=== PATIENT | male | born 1975 ===

== ENCOUNTER 2021-06-24 19:39 | Inpatient (IN) | payer BC ==
[2021-06-24] MEDS ORDERED: Sodium Chloride 0.9% 1,000 ML IV ONE (20:09)
[2021-06-24] MEDS ORDERED: Codeine/Promethazine 10-6.25 MG/5 ML Syrup 5 ML UD Syringe PO STA (20:09)
[2021-06-24 20:38] LABS: BLOOD UREA NITROGEN,BUN 8 mg/dL (7.0-18.0); CHLORIDE,CL 99 mmol/L (98-107); GLUCOSE RANDOM 131 mg/dL (74-106); POTASSIUM,K 3.9 mmol/L (3.5-5.1); SODIUM,NA 138 mmol/L (136-148)
[2021-06-24] MEDS ORDERED: Dexamethasone 10 MG/ML SDV IVPUSH ONE (21:23)
[2021-06-24] MEDS ORDERED: REMDESIVIR 200 MG in Sodium Chloride 0.9% 250 ML IV ONE (21:23)
--- NOTE | 2021-06-24 21:24 | EDM.PDOC ---
ED HPI GENERAL MEDICAL PROBLEM - General Chief Complaint: Respiratory Problem Stated Complaint: CHRONIC COUGH Time Seen by Provider: 06/24/21 20:00 Source of Information: Reports: Patient History Limitations: Reports: No Limitations - History of Present Illness INITIAL COMMENTS - FREE TEXT/NARRATIVE: HISTORY AND PHYSICAL: History of present illness: Patient is a 46-year-old male who presents to the emergency room with complaints of shortness of breath, chest pain and cough. He was diagnosed with COVID-19 on 06/17/2021 and states his symptoms are progressively getting worse. He reports that he has coughing episodes that make him so short of breath that he feels like he is going to "pass out" and have chest pain. Upon walking into the emergency room he is very dyspneic, oxygen saturation is 87% on room air. Patient denies any fever, chills, change in vision, syncope or near syncope. Denies any neck/back pain, hemoptysis, abdominal pain, nausea, vomiting, diarrhea, constipation or dysuria. Has not noted any blood in urine or stool. Patient has been eating and drinking appropriately. Review of systems: As per history of present illness and below otherwise all systems reviewed and negative. Past medical history: As per history of present illness and as reviewed below otherwise noncontributory. Surgical history: As per history of present illness and as reviewed below otherwise noncontributory. Social history: See social history for further information Family history: As per history of present illness and as reviewed below otherwise noncontributor y. Physical exam: General: Well developed and well nourished. Alert and orientated x 3. Nontoxic in appearance and in no acute distress. Vital signs are stable and have been reviewed by me. Nursing notes were reviewed. HEENT: Atraumatic, normocephalic, pupils equal and reactive bilaterally, negative for conjunctival pallor or scleral icterus, mucous membranes moist, TMs normal bilaterally, throat clear, neck supple, nontender, trachea midline. No drooling or trismus noted. No meningeal signs. No hot potato voice noted. Lungs: Diminished to auscultation bilaterally. No wheezes, rales, or rhonchi. Chest nontender. Normal work of breathing, no accessory muscles used. Spastic nonproductive cough noted. Heart: S1S2, regular rate and rhythm without overt murmur, gallops, or rubs. No JVD. No peripheral edema Abdomen: Soft, nondistended, nontender. Normoactive bowel sounds. Negative for masses or costovertebral tenderness. Skin: Intact, warm, dry. No lesions or rashes noted. Hematologic: No petechiae or purpra. Mucosa appropriate color and normal nail bed color and refill. Extremities: Atraumatic, moves all extremities per self without difficulty or deficits, negative for cords or calf pain. Neurovascular unremarkable. Neuro: Awake, alert, oriented. Cranial nerves II through XII unremarkable. Cerebellum unremarkable. Motor and sensory unremarkable throughout. Exam nonfocal. Psychiatric: Mood and affect are appropriate. Normal thought process. Answering questions appropriately. Please note that the patient was seen and evaluated during the 2019 SARS-CoV-2 novel coronavirus pandemic period. Community viral transmission is ongoing at time of this encounter and the emergency department is operating under pandemic response procedures. Medical Decision Making: Patient is a 46-year-old male who presents to the emergency room with complaints of shortness of breath, chest pain and cough since being diagnosed with COVID- 19. Patient was seen in the emergency room on 06/17/2021 and was diagnosed with COVID-19. He states he has had symptoms progressively get worse. Lung sounds are diminished. Upon arrival he is satting 87 to 89% on room air. He does require supplemental oxygen to get above 92%. We will do chest x-ray, cardiac enzymes and basic labs at this time. Patient also alerted for sepsis, blood cultures and lactate have been ordered. Patient's lab work is unremarkable. Chest x-ray shows bilateral opacities likely representing infection such as COVID-19 pneumonia.I have talked with the patient about today's findings, in addition to providing specific details for plan of care. Reassessment at the time of disposition demonstrates that the patient is in no acute distress. Unable to wean patient off oxygen at this time. I did talk with Dr. Burroughs who is agreeable to keeping this patient as inpatient for further care and monitoring. Patient is aware and agreeable to plan of care. Diagnostics: CBC, CMP, Troponin, EKG, CXR Therapeutics: NS at 125mls/hr, Remdisivir, Dexamethasone, Rocephin Impression: COVID-19 pneumonia Hypoxia Plan: Admission to Med/Surg with telemetry Definitive disposition and diagnosis as appropriate pending reevaluation and review of above. head, chest Pain Score (Numeric/FACES): 7 - Related Data Allergies Allergy/AdvReac Type Severity Reaction Status Date / Time No Known Allergies Allergy Verified 06/24/21 19:53 Home Meds: Home Meds . [No Known Home Meds] 06/24/21 [History] Past Medical History - Past Health History Medical/Surgical History: Denies Medical/Surgical History - Infectious Disease History Infectious Disease History: Reports: Chicken Pox, Measles, Mumps, Novel Coronavirus - Past Surgical History Musculoskeletal Surgical History: Reports: Other (See Below) Other Musculoskeletal Surgeries/Procedures:: Fibrous Cyst off bottom of left foot Social & Family History - Tobacco Use Tobacco Use Status *Q: Never Tobacco User - Recreational Drug Use Recreational Drug Use: No ED ROS GENERAL - Review of Systems Review Of Systems: Comprehensive ROS is negative, except as noted in HPI. ED EXAM, GENERAL - Physical Exam Exam: See Below (See dictation) Course - Vital Signs Last Recorded V/S: Last Vital Signs Temp 98.9 F 06/24/21 19:50 Pulse 101 H 06/24/21 21:18 Resp 18 06/24/21 21:06 BP 141/89 H 06/24/21 21:18 Pulse Ox 93 L 06/24/21 21:18 - Orders/Labs/Meds Orders: Active Orders 24 hr Category Date Time Status Admission Status [Patient Status] [ADT] Stat ADT 06/24/21 21:24 Active Chest 1V Frontal [CR] Stat Exams 06/24/21 20:09 Taken BILIRUBIN DIRECT [CHEM] DAILY Lab 06/25/21 21:30 Ordered BILIRUBIN DIRECT [CHEM] DAILY Lab 06/26/21 21:30 Ordered BILIRUBIN DIRECT [CHEM] DAILY Lab 06/27/21 21:30 Ordered BILIRUBIN DIRECT [CHEM] DAILY Lab 06/28/21 21:30 Ordered COMPREHENSIVE METABOLIC PN,CMP [CHEM] DAILY Lab 06/25/21 21:30 Ordered COMPREHENSIVE METABOLIC PN,CMP [CHEM] DAILY Lab 06/26/21 21:30 Ordered COMPREHENSIVE METABOLIC PN,CMP [CHEM] DAILY Lab 06/27/21 21:30 Ordered COMPREHENSIVE METABOLIC PN,CMP [CHEM] DAILY Lab 06/28/21 21:30 Ordered CULTURE BLOOD [BC] Stat Lab 06/24/21 20:09 Received CULTURE BLOOD [BC] Stat Lab 09/27/21 20:39 Received Sodium Chloride 0.9% [Normal Saline] 1,000 ml Med 06/24/21 20:09 Active IV STAT Blood Culture x2 Reflex Set [OM.PC] Stat Oth 06/24/21 20:09 Ordered Medication Orders Sodium Chloride (Normal Saline) 1,000 mls @ 125 mls/hr IV STAT ONE Stop: 06/25/21 04:08 Last Admin: 06/24/21 20:17 Dose: 125 mls/hr Documented by: AMANDA Labs: Laboratory Tests 06/24/21 06/24/21 06/24/21 Range/Units 20:09 20:09 20:09 WBC 6.56 (4.0-11.0) K/uL RBC 4.65 (4.50-5.90) M/uL Hgb 14.2 (13.0-17.0) g/dL Hct 40.7 (38.0-50.0) % MCV 87.5 (80.0-98.0) fL MCH 30.5 (27.0-32.0) pg MCHC 34.9 (31.0-37.0) g/dL RDW Std Deviation 42.2 (28.0-62.0) fl RDW Coeff of Randy 13 (11.0-15.0) % Plt Count 162 (150-400) K/uL MPV 9.90 (7.40-12.00) fL Neut % (Auto) 78.5 (48.0-80.0) % Lymph % (Auto) 12.8 L (16.0-40.0) % [place] % (Auto) 8.2 (0.0-15.0) % Eos % (Auto) 0.2 (0.0-7.0) % Baso % (Auto) 0.3 (0.0-1.5) % Neut # (Auto) 5.2 (1.4-5.7) K/uL Lymph # (Auto) 0.8 (0.6-2.4) K/uL [place] # (Auto) 0.5 (0.0-0.8) K/uL Eos # (Auto) 0.0 (0.0-0.7) K/uL Baso # (Auto) 0.0 (0.0-0.1) K/uL Nucleated RBC % 0.0 /100WBC Nucleated RBCs # 0 K/uL Sodium 138 (136-148) mmol/L Potassium 3.9 (3.5-5.1) mmol/L Chloride 99 (98-107) mmol/L Carbon Dioxide 28.0 (21.0-32.0) mmol/L BUN 8 (7.0-18.0) mg/dL Creatinine 1.1 (0.8-1.3) mg/dL Est Cr Clr Drug Dosing 82.91 mL/min Estimated GFR (MDRD) > 60.0 ml/min Glucose 131 H (74-106) mg/dL Lactic Acid 1.3 (0.4-2.0) mmol/L Calcium 9.0 (8.5-10.1) mg/dL Total Bilirubin 0.4 (0.2-1.0) mg/dL Direct Bilirubin (0.0-0.5) mg/dL AST 65 H (15-37) IU/L ALT 53 (14-63) IU/L Alkaline Phosphatase 59 (46-116) U/L Troponin I < 0.050 (0.000-0.056) ng/mL Total Protein 7.8 (6.4-8.2) g/dL Albumin 3.2 L (3.4-5.0) g/dL Globulin 4.6 H (2.6-4.0) g/dL Albumin/Globulin Ratio 0.7 L (0.9-1.6) 06/24/21 Range/Units 20:09 WBC (4.0-11.0) K/uL RBC (4.50-5.90) M/uL Hgb (13.0-17.0) g/dL Hct (38.0-50.0) % MCV (80.0-98.0) fL MCH (27.0-32.0) pg MCHC (31.0-37.0) g/dL RDW Std Deviation (28.0-62.0) fl RDW Coeff of Randy (11.0-15.0) % Plt Count (150-400) K/uL MPV (7.40-12.00) fL Neut % (Auto) (48.0-80.0) % Lymph % (Auto) (16.0-40.0) % [place] % (Auto) (0.0-15.0) % Eos % (Auto) (0.0-7.0) % Baso % (Auto) (0.0-1.5) % Neut # (Auto) (1.4-5.7) K/uL Lymph # (Auto) (0.6-2.4) K/uL [place] # (Auto) (0.0-0.8) K/uL Eos # (Auto) (0.0-0.7) K/uL Baso # (Auto) (0.0-0.1) K/uL Nucleated RBC % /100WBC Nucleated RBCs # K/uL Sodium (136-148) mmol/L Potassium (3.5-5.1) mmol/L Chloride (98-107) mmol/L Carbon Dioxide (21.0-32.0) mmol/L BUN (7.0-18.0) mg/dL Creatinine (0.8-1.3) mg/dL Est Cr Clr Drug Dosing mL/min Estimated GFR (MDRD) ml/min Glucose (74-106) mg/dL Lactic Acid (0.4-2.0) mmol/L Calcium (8.5-10.1) mg/dL Total Bilirubin (0.2-1.0) mg/dL Direct Bilirubin 0.20 (0.0-0.5) mg/dL AST (15-37) IU/L ALT (14-63) IU/L Alkaline Phosphatase (46-116) U/L Troponin I (0.000-0.056) ng/mL Total Protein (6.4-8.2) g/dL Albumin (3.4-5.0) g/dL Globulin (2.6-4.0) g/dL Albumin/Globulin Ratio (0.9-1.6) Meds: Medications Generic Name Dose Route Start Last Admin Trade Name Freq PRN Reason Stop Dose Admin Sodium Chloride 1,000 mls @ 125 mls/hr 06/24/21 20:09 06/24/21 20:17 Normal Saline IV 06/25/21 04:08 125 mls/hr STAT ONE Administration Discontinued Medications Generic Name Dose Route Start Last Admin Trade Name Freq PRN Reason Stop Dose Admin Dexamethasone 6 mg 06/24/21 21:23 Dexamethasone 10 Mg/Ml Sdv IVPUSH 06/24/21 21:24 ONETIME ONE Remdesivir 200 mg/ Sodium 250 mls @ 250 mls/hr 06/24/21 21:23 Chloride IV 06/24/21 21:24 ONETIME ONE Promethazine HCl/Codeine 5 ml 06/24/21 20:09 06/24/21 20:18 Codeine/Promethazine 10-6.25 Mg/5 Ml Syrup 5 Ml Ud Syringe PO 06/24/21 20:10 5 ml NOW STA Administration Departure - Departure Time of Disposition: 21:46 Disposition: Admitted As Inpatient 68 Clinical Impression: Hypoxia, Pneumonia due to COVID-19 virus - Discharge Information Referrals: PCP,None [Primary Care Provider] - Forms: ED Department Discharge Sepsis Event Note (ED) - Evaluation Sepsis Screening Result: Possible Sepsis Risk - Focused Exam Vital Signs: Vital Signs Temp Pulse Resp BP Pulse Ox 06/24/21 21:18 101 H 141/89 H 93 L 06/24/21 21:06 100 18 138/85 93 L 06/24/21 19:50 98.9 F 114 H 22 H 148/88 H 89 L - My Orders Last 24 Hours: My Active Orders 06/24/21 20:09 Chest 1V Frontal [CR] Stat CULTURE BLOOD [BC] Stat Sodium Chloride 0.9% [Normal Saline] 1,000 ml IV STAT Blood Culture x2 Reflex Set [OM.PC] Stat 06/24/21 20:39 CULTURE BLOOD [BC] Stat 06/24/21 21:24 Admission Status [Patient Status] [ADT] Stat 06/25/21 21:30 BILIRUBIN DIRECT [CHEM] DAILY COMPREHENSIVE METABOLIC PN,CMP [CHEM] DAILY 06/26/21 21:30 BILIRUBIN DIRECT [CHEM] DAILY COMPREHENSIVE METABOLIC PN,CMP [CHEM] DAILY 06/27/21 21:30 BILIRUBIN DIRECT [CHEM] DAILY COMPREHENSIVE METABOLIC PN,CMP [CHEM] DAILY 06/28/21 21:30 BILIRUBIN DIRECT [CHEM] DAILY COMPREHENSIVE METABOLIC PN,CMP [CHEM] DAILY - Assessment/Plan Last 24 Hours: My Active Orders 06/24/21 20:09 Chest 1V Frontal [CR] Stat CULTURE BLOOD [BC] Stat Sodium Chloride 0.9% [Normal Saline] 1,000 ml IV STAT Blood Culture x2 Reflex Set [OM.PC] Stat 06/24/21 20:39 CULTURE BLOOD [BC] Stat 06/24/21 21:24 Admission Status [Patient Status] [ADT] Stat 06/25/21 21:30 BILIRUBIN DIRECT [CHEM] DAILY COMPREHENSIVE METABOLIC PN,CMP [CHEM] DAILY 06/26/21 21:30 BILIRUBIN DIRECT [CHEM] DAILY COMPREHENSIVE METABOLIC PN,CMP [CHEM] DAILY 06/27/21 21:30 BILIRUBIN DIRECT [CHEM] DAILY COMPREHENSIVE METABOLIC PN,CMP [CHEM] DAILY 06/28/21 21:30 BILIRUBIN DIRECT [CHEM] DAILY COMPREHENSIVE METABOLIC PN,CMP [CHEM] DAILY
--- NOTE | 2021-06-24 21:45 | CR ---
INDICATION: Shortness of breath. COVID positive. TECHNIQUE: Chest 1 view Comparison: None Findings: Cardiomediastinal silhouette is unremarkable. No pleural effusion or pneumothorax. Patchy subpleural bilateral opacities more pronounced in the left lower lung. Impression: Bilateral opacities likely representing infection such as COVID-19 pneumonia. Dictated by Abilio Patrick MD @ 06/24/2021 9:43:31 PM (Electronically Signed)
[2021-06-24] MEDS ORDERED: Acetaminophen 325 MG Tab PO ONE (22:13)
--- NOTE | 2021-06-25 01:04 | PCM.HP.2 ---
H&P History of Present Illness - General Date of Service: 06/24/21 Admit Problem/Dx: Admission Diagnosis/Problem Admission Diagnosis/Problem Hypoxia - History of Present Illness Initial Comments - Free Text/Narative: 46 yo male who presents with ten day history of shortness of breath, cough, fevers, and generalized weakness. He was diagnosed with COVID eight days ago. He was found to be satting in the mid 80s on room air. Chest x-ray shows bilateral infiltrates. head, chest Pain Score (Numeric/FACES): 7 - Related Data Allergies/Adverse Reactions: Allergies Allergy/AdvReac Type Severity Reaction Status Date / Time No Known Allergies Allergy Verified 06/24/21 19:53 Home Medications: Home Meds . [No Known Home Meds] 06/24/21 [History] Past Medical History - Past Health History Medical/Surgical History: Denies Medical/Surgical History - Infectious Disease History Infectious Disease History: Reports: Chicken Pox, Measles, Mumps, Novel Coronavirus - Past Surgical History Musculoskeletal Surgical History: Reports: Other (See Below) Other Musculoskeletal Surgeries/Procedures:: Fibrous Cyst off bottom of left foot Social & Family History - Tobacco Use Tobacco Use Status *Q: Never Tobacco User - Recreational Drug Use Recreational Drug Use: No H&P Review of Systems - Review of Systems: Review Of Systems: Comprehensive ROS is negative, except as noted in HPI. Exam - Exam Exam: See Below - Vital Signs Vital Signs: Last Vital Signs Temp 39.1 C H 06/24/21 22:23 Pulse 102 H 06/24/21 22:11 Resp 18 06/24/21 22:11 BP 144/92 H 06/24/21 22:11 Pulse Ox 93 L 06/24/21 22:11 Weight: 124.738 kg - Exam General: Alert, Oriented HEENT: Mucosa Moist & [place] Neck: Supple Lungs: Normal Respiratory Effort, Rhonchi Cardiovascular: Regular Rate, Regular Rhythm GI/Abdominal Exam: Normal Bowel Sounds, Soft, Non-Tender Extremities: Non-Tender, No Pedal Edema Skin: Warm, Dry, Intact - Patient Data Lab Results Last 24 hrs: Laboratory Results - last 24 hr 06/24/21 06/24/21 06/24/21 Range/Units 20:09 20:09 20:09 WBC 6.56 (4.0-11.0) K/uL RBC 4.65 (4.50-5.90) M/uL Hgb 14.2 (13.0-17.0) g/dL Hct 40.7 (38.0-50.0) % MCV 87.5 (80.0-98.0) fL MCH 30.5 (27.0-32.0) pg MCHC 34.9 (31.0-37.0) g/dL RDW Std Deviation 42.2 (28.0-62.0) fl RDW Coeff of Randy 13 (11.0-15.0) % Plt Count 162 (150-400) K/uL MPV 9.90 (7.40-12.00) fL Neut % (Auto) 78.5 (48.0-80.0) % Lymph % (Auto) 12.8 L (16.0-40.0) % [place] % (Auto) 8.2 (0.0-15.0) % Eos % (Auto) 0.2 (0.0-7.0) % Baso % (Auto) 0.3 (0.0-1.5) % Neut # (Auto) 5.2 (1.4-5.7) K/uL Lymph # (Auto) 0.8 (0.6-2.4) K/uL [place] # (Auto) 0.5 (0.0-0.8) K/uL Eos # (Auto) 0.0 (0.0-0.7) K/uL Baso # (Auto) 0.0 (0.0-0.1) K/uL Nucleated RBC % 0.0 /100WBC Nucleated RBCs # 0 K/uL Sodium 138 (136-148) mmol/L Potassium 3.9 (3.5-5.1) mmol/L Chloride 99 (98-107) mmol/L Carbon Dioxide 28.0 (21.0-32.0) mmol/L BUN 8 (7.0-18.0) mg/dL Creatinine 1.1 (0.8-1.3) mg/dL Est Cr Clr Drug Dosing 82.91 mL/min Estimated GFR (MDRD) > 60.0 ml/min Glucose 131 H (74-106) mg/dL Lactic Acid 1.3 (0.4-2.0) mmol/L Calcium 9.0 (8.5-10.1) mg/dL Total Bilirubin 0.4 (0.2-1.0) mg/dL Direct Bilirubin (0.0-0.5) mg/dL AST 65 H (15-37) IU/L ALT 53 (14-63) IU/L Alkaline Phosphatase 59 (46-116) U/L Troponin I < 0.050 (0.000-0.056) ng/mL Total Protein 7.8 (6.4-8.2) g/dL Albumin 3.2 L (3.4-5.0) g/dL Globulin 4.6 H (2.6-4.0) g/dL Albumin/Globulin Ratio 0.7 L (0.9-1.6) 06/24/ Range/Units 20:09 WBC (4.0-11.0) K/uL RBC (4.50-5.90) M/uL Hgb (13.0-17.0) g/dL Hct (38.0-50.0) % MCV (80.0-98.0) fL MCH (27.0-32.0) pg MCHC (31.0-37.0) g/dL RDW Std Deviation (28.0-62.0) fl RDW Coeff of Randy (11.0-15.0) % Plt Count (150-400) K/uL MPV (7.40-12.00) fL Neut % (Auto) (48.0-80.0) % Lymph % (Auto) (16.0-40.0) % [place] % (Auto) (0.0-15.0) % Eos % (Auto) (0.0-7.0) % Baso % (Auto) (0.0-1.5) % Neut # (Auto) (1.4-5.7) K/uL Lymph # (Auto) (0.6-2.4) K/uL [place] # (Auto) (0.0-0.8) K/uL Eos # (Auto) (0.0-0.7) K/uL Baso # (Auto) (0.0-0.1) K/uL Nucleated RBC % /100WBC Nucleated RBCs # K/uL Sodium (136-148) mmol/L Potassium (3.5-5.1) mmol/L Chloride (98-107) mmol/L Carbon Dioxide (21.0-32.0) mmol/L BUN (7.0-18.0) mg/dL Creatinine (0.8-1.3) mg/dL Est Cr Clr Drug Dosing mL/min Estimated GFR (MDRD) ml/min Glucose (74-106) mg/dL Lactic Acid (0.4-2.0) mmol/L Calcium (8.5-10.1) mg/dL Total Bilirubin (0.2-1.0) mg/dL Direct Bilirubin 0.20 (0.0-0.5) mg/dL AST (15-37) IU/L ALT (14-63) IU/L Alkaline Phosphatase (46-116) U/L Troponin I (0.000-0.056) ng/mL Total Protein (6.4-8.2) g/dL Albumin (3.4-5.0) g/dL Globulin (2.6-4.0) g/dL Albumin/Globulin Ratio (0.9-1.6) Result Diagrams: 06/24/21 20:09 06/24/21 20:09 Sepsis Event Note - Evaluation Sepsis Screening Result: Sepsis Risk - Focused Exam Vital Signs: Vital Signs Temp Temp Pulse Resp BP Pulse Ox 06/24/21 22:23 39.1 C H 06/24/21 22:11 39.1 C H 102 H 18 144/92 H 93 L 06/24/21 21:18 101 H 141/89 H 93 L 06/24/21 21:06 100 18 138/85 93 L 06/24/21 19:50 37.2 C 114 H 22 H 148/88 H 89 L - Problem List (1) Hypoxia SNOMED Code(s): 953695724 ICD Code: R09.02 - HYPOXEMIA Status: Acute Current Visit: Yes (2) Pneumonia due to COVID-19 virus SNOMED Code(s): 686600205823172054 ICD Code: U07.1 - COVID-19; J12.82 - PNEUMONIA DUE TO CORONAVIRUS DISEASE 2019 Status: Acute Current Visit: Yes Problem List Initiated/Reviewed/Updated: Yes Orders Last 24hrs: Active Orders 24 hr Category Date Time Status Admission Status [Patient Status] [ADT] Stat ADT 06/24/21 21:24 Active Antiembolic Devices [RC] PER UNIT ROUTINE Care 06/25/21 01:02 Ordered Oxygen Therapy [RC] PRN Care 06/25/21 01:01 Ordered RT Post Treatment Assessment [RC] Click to Edit Care 06/25/21 01:00 Active RT Pre-Treatment Assessment [RC] Click to Edit Care 06/25/21 01:00 Active Up ad Tessy [RC] ASDIRECTED Care 06/25/21 01:01 Ordered VTE/DVT Education [RC] PER UNIT ROUTINE Care 06/25/21 01:01 Ordered Vital Signs [RC] Q4H Care 06/25/21 01:01 Ordered Regular Diet [DIET] Diet 06/25/21 Breakfast Ordered CBC WITH AUTO DIFF [HEME] AM Lab 06/25/21 05:11 Ordered CBC WITH AUTO DIFF [HEME] AM Lab 06/26/21 05:11 Ordered CBC WITH AUTO DIFF [HEME] AM Lab 06/27/21 05:11 Ordered CBC WITH AUTO DIFF [HEME] AM Lab 06/28/21 05:11 Ordered CBC WITH AUTO DIFF [HEME] AM Lab 06/29/21 05:11 Ordered COMPREHENSIVE METABOLIC PN,CMP [CHEM] AM Lab 06/25/21 05:11 Ordered COMPREHENSIVE METABOLIC PN,CMP [CHEM] AM Lab 06/26/21 05:11 Ordered COMPREHENSIVE METABOLIC PN,CMP [CHEM] AM Lab 06/27/21 05:11 Ordered COMPREHENSIVE METABOLIC PN,CMP [CHEM] AM Lab 06/28/21 05:11 Ordered COMPREHENSIVE METABOLIC PN,CMP [CHEM] AM Lab 06/29/21 05:11 Ordered CULTURE BLOOD [BC] Stat Lab 06/24/21 20:09 Received CULTURE BLOOD [BC] Stat Lab 06/24/21 20:39 Received Albuterol/Ipratropium [Combivent Respimat] Med 06/25/21 06:00 Ordered 1 gm INH Q6HRRT Benzonatate [Tessalon Perles] Med 06/25/21 01:00 Ordered 100 mg PO Q6H PRN Enoxaparin [Lovenox] Med 06/25/21 09:00 Ordered 40 mg SUBCUT Q12HR Remdesivir 100 mg Med 06/25/21 21:00 Ordered Sodium Chloride 0.9% [Normal Saline] 100 ml IV Q24H Sodium Chloride 0.9% [Normal Saline] 1,000 ml Med 06/24/21 20:09 Active IV STAT dexAMETHasone Med 06/25/21 21:00 Ordered 6 mg PO Q24H Blood Culture x2 Reflex Set [OM.PC] Stat Oth 06/24/21 20:09 Ordered Sequential Compression Device [OM.PC] Per Unit Routine Oth 06/25/21 01:02 Ordered Resuscitation Status Routine Resus Stat 06/25/21 01:01 Ordered Medication Orders Albuterol/Ipratropium (Albuterol/Ipratropium 4 Gm Inhalation [place]) 1 gm INH Q6HRRT BROOKS Benzonatate (Benzonatate 100 Mg Cap) 100 mg PO Q6H PRN PRN Reason: Cough Dexamethasone (Dexamethasone 4 Mg Tab) 6 mg PO Q24H BROOKS Enoxaparin Sodium (Enoxaparin 40 Mg/0.4 Ml Syringe) 40 mg SUBCUT Q12HR BROOKS Sodium Chloride (Normal Saline) 1,000 mls @ 125 mls/hr IV STAT ONE Stop: 06/25/21 04:08 Last Admin: 06/24/21 20:17 Dose: 125 mls/hr Documented by: AMANDA Remdesivir 100 mg/ Sodium (Chloride) 100 mls @ 100 mls/hr IV Q24H BROOKS Stop: 06/28/21 21:59 Assessment/Plan Comment:: 46 yo male admitted with acute hypoxic respiratory failure from COVID pneumonia. Hypoxia: supplemental oxygen via [place] COVID: treating with Remdesivir, and dexamethason DVT ppx: lovenox
[2021-06-25] MEDS: Albuterol/Ipratropium 4 GM Inhalation Spray INH SCH ×4 (05:47→23:44)
[2021-06-25] MEDS: Benzonatate 100 MG Cap PO PRN (06:15)
[2021-06-25 08:06] LABS: BLOOD UREA NITROGEN,BUN 5 mg/dL (7.0-18.0); CARBON DIOXIDE,CO2 22.1 mmol/L (21.0-32.0); CHLORIDE,CL 103 mmol/L (98-107); GLUCOSE RANDOM 171 mg/dL (74-106); POTASSIUM,K 3.7 mmol/L (3.5-5.1); SODIUM,NA 141 mmol/L (136-148)
[2021-06-25] MEDS: Enoxaparin 40 MG/0.4 ML Syringe SUBCUT SCH ×2 (09:30→21:19)
--- NOTE | 2021-06-25 15:14 | PCM.PN ---
- General Info Date of Service: 06/25/21 - Review of Systems Systems Review Comment:: feeling better. reports cough and shortness of breath - Patient Data Vitals - Most Recent: Last Vital Signs Temp 36.8 C 06/25/21 12:18 Pulse 98 06/25/21 12:18 Resp 18 06/25/21 12:18 BP 142/96 H 06/25/21 12:18 Pulse Ox 93 L 06/25/21 12:18 Weight - Most Recent: 129.501 kg I&O - Last 24 Hours: Intake & Output 06/25/21 06/25/21 06/25/21 06:59 14:59 22:59 Intake Total 350 Output Total 850 Balance -500 Lab Results Last 24 Hours: Laboratory Results - last 24 hr 06/24/21 06/24/21 06/24/21 Range/Units 20:09 20:09 20:09 WBC 6.56 (4.0-11.0) K/uL RBC 4.65 (4.50-5.90) M/uL Hgb 14.2 (13.0-17.0) g/dL Hct 40.7 (38.0-50.0) % MCV 87.5 (80.0-98.0) fL MCH 30.5 (27.0-32.0) pg MCHC 34.9 (31.0-37.0) g/dL RDW Std Deviation 42.2 (28.0-62.0) fl RDW Coeff of Randy 13 (11.0-15.0) % Plt Count 162 (150-400) K/uL MPV 9.90 (7.40-12.00) fL Neut % (Auto) 78.5 (48.0-80.0) % Lymph % (Auto) 12.8 L (16.0-40.0) % [place] % (Auto) 8.2 (0.0-15.0) % Eos % (Auto) 0.2 (0.0-7.0) % Baso % (Auto) 0.3 (0.0-1.5) % Neut # (Auto) 5.2 (1.4-5.7) K/uL Lymph # (Auto) 0.8 (0.6-2.4) K/uL [place] # (Auto) 0.5 (0.0-0.8) K/uL Eos # (Auto) 0.0 (0.0-0.7) K/uL Baso # (Auto) 0.0 (0.0-0.1) K/uL Nucleated RBC % 0.0 /100WBC Nucleated RBCs # 0 K/uL Sodium 138 (136-148) mmol/L Potassium 3.9 (3.5-5.1) mmol/L Chloride 99 (98-107) mmol/L Carbon Dioxide 28.0 (21.0-32.0) mmol/L BUN 8 (7.0-18.0) mg/dL Creatinine 1.1 (0.8-1.3) mg/dL Est Cr Clr Drug Dosing 82.91 mL/min Estimated GFR (MDRD) > 60.0 ml/min Glucose 131 H (74-106) mg/dL Lactic Acid 1.3 (0.4-2.0) mmol/L Calcium 9.0 (8.5-10.1) mg/dL Total Bilirubin 0.4 (0.2-1.0) mg/dL Direct Bilirubin (0.0-0.5) mg/dL AST 65 H (15-37) IU/L ALT 53 (14-63) IU/L Alkaline Phosphatase 59 (46-116) U/L Troponin I < 0.050 (0.000-0.056) ng/mL Total Protein 7.8 (6.4-8.2) g/dL Albumin 3.2 L (3.4-5.0) g/dL Globulin 4.6 H (2.6-4.0) g/dL Albumin/Globulin Ratio 0.7 L (0.9-1.6) 06/24/21 06/25/21 06/25/21 Range/Units 20:09 06:16 06:16 WBC 8.61 (4.0-11.0) K/uL RBC 5.12 (4.50-5.90) M/uL Hgb 15.5 (13.0-17.0) g/dL Hct 45.2 (38.0-50.0) % MCV 88.3 (80.0-98.0) fL MCH 30.3 (27.0-32.0) pg MCHC 34.3 (31.0-37.0) g/dL RDW Std Deviation 43.1 (28.0-62.0) fl RDW Coeff of Randy 13 (11.0-15.0) % Plt Count 200 (150-400) K/uL MPV 10.70 (7.40-12.00) fL Neut % (Auto) 81.2 H (48.0-80.0) % Lymph % (Auto) 13.2 L (16.0-40.0) % [place] % (Auto) 5.5 (0.0-15.0) % Eos % (Auto) 0.0 (0.0-7.0) % Baso % (Auto) 0.1 (0.0-1.5) % Neut # (Auto) 7.0 H (1.4-5.7) K/uL Lymph # (Auto) 1.1 (0.6-2.4) K/uL [place] # (Auto) 0.5 (0.0-0.8) K/uL Eos # (Auto) 0.0 (0.0-0.7) K/uL Baso # (Auto) 0.0 (0.0-0.1) K/uL Nucleated RBC % 0.0 /100WBC Nucleated RBCs # 0 K/uL Sodium 141 (136-148) mmol/L Potassium 3.7 (3.5-5.1) mmol/L Chloride 103 (98-107) mmol/L Carbon Dioxide 22.1 (21.0-32.0) mmol/L BUN 5 L (7.0-18.0) mg/dL Creatinine 1.2 (0.8-1.3) mg/dL Est Cr Clr Drug Dosing 76.00 mL/min Estimated GFR (MDRD) > 60.0 ml/min Glucose 171 H (74-106) mg/dL Lactic Acid (0.4-2.0) mmol/L Calcium 8.2 L (8.5-10.1) mg/dL Total Bilirubin 0.5 (0.2-1.0) mg/dL Direct Bilirubin 0.20 (0.0-0.5) mg/dL AST 64 H (15-37) IU/L ALT 55 (14-63) IU/L Alkaline Phosphatase 69 (46-116) U/L Troponin I (0.000-0.056) ng/mL Total Protein 8.6 H (6.4-8.2) g/dL Albumin 3.2 L (3.4-5.0) g/dL Globulin 5.4 H (2.6-4.0) g/dL Albumin/Globulin Ratio 0.6 L (0.9-1.6) Med Orders - Current: Current Medications Albuterol/Ipratropium (Albuterol/Ipratropium 4 Gm Inhalation [place]) 0 gm INH Q6HRRT [facility]OO[facility] Last Admin: 06/25/21 12:20 Dose: 1 puff Documented by: Benzonatate (Benzonatate 100 Mg Cap) 100 mg PO Q6H PRN PRN Reason: Cough Last Admin: 06/25/21 06:15 Dose: 100 mg Documented by: Dexamethasone (Dexamethasone 4 Mg Tab) 6 mg PO Q24H [facility] Enoxaparin Sodium (Enoxaparin 40 Mg/0.4 Ml Syringe) 40 mg SUBCUT Q12HR [facility] Last Admin: 06/25/21 09:30 Dose: 40 mg Documented by: Remdesivir 100 mg/ Sodium (Chloride) 100 mls @ 100 mls/hr IV Q24H [facility]OOKS Stop: 06/28/21 21:59 Discontinued Medications Acetaminophen (Acetaminophen 325 Mg Tab) 650 mg PO NOW ONE Stop: 06/24/21 22:14 Last Admin: 06/24/21 22:23 Dose: 650 mg Documented by: Dexamethasone (Dexamethasone 10 Mg/Ml Sdv) 6 mg IVPUSH ONETIME ONE Stop: 06/24/21 21:24 Last Admin: 06/24/21 22:10 Dose: 6 mg Documented by: Sodium Chloride (Normal Saline) 1,000 mls @ 125 mls/hr IV STAT ONE Stop: 06/25/21 04:08 Last Admin: 06/24/21 20:17 Dose: 125 mls/hr Documented by: Remdesivir 200 mg/ Sodium (Chloride) 250 mls @ 250 mls/hr IV ONETIME ONE Stop: 06/24/21 21:24 Last Admin: 06/24/21 23:08 Dose: 250 mls/hr Documented by: Promethazine HCl/Codeine (Codeine/Promethazine 10-6.25 Mg/5 Ml Syrup 5 Ml Ud Syringe) 5 ml PO NOW STA Stop: 06/24/21 20:10 Last Admin: 06/24/21 20:18 Dose: 5 ml Documented by: - Exam General: Alert, Oriented Neck: Supple Lungs: Clear to Auscultation, Normal Respiratory Effort GI/Abdominal Exam: Soft, Non-Tender, No Distention Extremities: Non-Tender, No Pedal Edema Skin: Warm, Dry, Intact Neurological: No New Focal Deficit - Patient Data Lab Results Last 24 hrs: Laboratory Results - last 24 hr 06/24/21 06/24/21 06/24/21 Range/Units 20:09 20:09 20:09 WBC 6.56 (4.0-11.0) K/uL RBC 4.65 (4.50-5.90) M/uL Hgb 14.2 (13.0-17.0) g/dL Hct 40.7 (38.0-50.0) % MCV 87.5 (80.0-98.0) fL MCH 30.5 (27.0-32.0) pg MCHC 34.9 (31.0-37.0) g/dL RDW Std Deviation 42.2 (28.0-62.0) fl RDW Coeff of Randy 13 (11.0-15.0) % Plt Count 162 (150-400) K/uL MPV 9.90 (7.40-12.00) fL Neut % (Auto) 78.5 (48.0-80.0) % Lymph % (Auto) 12.8 L (16.0-40.0) % [place] % (Auto) 8.2 (0.0-15.0) % Eos % (Auto) 0.2 (0.0-7.0) % Baso % (Auto) 0.3 (0.0-1.5) % Neut # (Auto) 5.2 (1.4-5.7) K/uL Lymph # (Auto) 0.8 (0.6-2.4) K/uL [place] # (Auto) 0.5 (0.0-0.8) K/uL Eos # (Auto) 0.0 (0.0-0.7) K/uL Baso # (Auto) 0.0 (0.0-0.1) K/uL Nucleated RBC % 0.0 /100WBC Nucleated RBCs # 0 K/uL Sodium 138 (136-148) mmol/L Potassium 3.9 (3.5-5.1) mmol/L Chloride 99 (98-107) mmol/L Carbon Dioxide 28.0 (21.0-32.0) mmol/L BUN 8 (7.0-18.0) mg/dL Creatinine 1.1 (0.8-1.3) mg/dL Est Cr Clr Drug Dosing 82.91 mL/min Estimated GFR (MDRD) > 60.0 ml/min Glucose 131 H (74-106) mg/dL Lactic Acid 1.3 (0.4-2.0) mmol/L Calcium 9.0 (8.5-10.1) mg/dL Total Bilirubin 0.4 (0.2-1.0) mg/dL Direct Bilirubin (0.0-0.5) mg/dL AST 65 H (15-37) IU/L ALT 53 (14-63) IU/L Alkaline Phosphatase 59 (46-116) U/L Troponin I < 0.050 (0.000-0.056) ng/mL Total Protein 7.8 (6.4-8.2) g/dL Albumin 3.2 L (3.4-5.0) g/dL Globulin 4.6 H (2.6-4.0) g/dL Albumin/Globulin Ratio 0.7 L (0.9-1.6) 06/24/21 06/25/21 06/25/21 Range/Units 20:09 06:16 06:16 WBC 8.61 (4.0-11.0) K/uL RBC 5.12 (4.50-5.90) M/uL Hgb 15.5 (13.0-17.0) g/dL Hct 45.2 (38.0-50.0) % MCV 88.3 (80.0-98.0) fL MCH 30.3 (27.0-32.0) pg MCHC 34.3 (31.0-37.0) g/dL RDW Std Deviation 43.1 (28.0-62.0) fl RDW Coeff of Randy 13 (11.0-15.0) % Plt Count 200 (150-400) K/uL MPV 10.70 (7.40-12.00) fL Neut % (Auto) 81.2 H (48.0-80.0) % Lymph % (Auto) 13.2 L (16.0-40.0) % [place] % (Auto) 5.5 (0.0-15.0) % Eos % (Auto) 0.0 (0.0-7.0) % Baso % (Auto) 0.1 (0.0-1.5) % Neut # (Auto) 7.0 H (1.4-5.7) K/uL Lymph # (Auto) 1.1 (0.6-2.4) K/uL [place] # (Auto) 0.5 (0.0-0.8) K/uL Eos # (Auto) 0.0 (0.0-0.7) K/uL Baso # (Auto) 0.0 (0.0-0.1) K/uL Nucleated RBC % 0.0 /100WBC Nucleated RBCs # 0 K/uL Sodium 141 (136-148) mmol/L Potassium 3.7 (3.5-5.1) mmol/L Chloride 103 (98-107) mmol/L Carbon Dioxide 22.1 (21.0-32.0) mmol/L BUN 5 L (7.0-18.0) mg/dL Creatinine 1.2 (0.8-1.3) mg/dL Est Cr Clr Drug Dosing 76.00 mL/min Estimated GFR (MDRD) > 60.0 ml/min Glucose 171 H (74-106) mg/dL Lactic Acid (0.4-2.0) mmol/L Calcium 8.2 L (8.5-10.1) mg/dL Total Bilirubin 0.5 (0.2-1.0) mg/dL Direct Bilirubin 0.20 (0.0-0.5) mg/dL AST 64 H (15-37) IU/L ALT 55 (14-63) IU/L Alkaline Phosphatase 69 (46-116) U/L Troponin I (0.000-0.056) ng/mL Total Protein 8.6 H (6.4-8.2) g/dL Albumin 3.2 L (3.4-5.0) g/dL Globulin 5.4 H (2.6-4.0) g/dL Albumin/Globulin Ratio 0.6 L (0.9-1.6) Result Diagrams: 06/25/21 06:16 06/25/21 06:16 Sepsis Event Note - Evaluation Sepsis Screening Result: No Definite Risk - Focused Exam Vital Signs: Vital Signs Temp Pulse Resp BP Pulse Ox Pulse Ox 06/25/21 12:18 36.8 C 98 18 142/96 H 93 L 06/25/21 09:40 92 L 06/25/21 08:00 36.6 C 98 18 126/89 93 L 06/25/21 05:01 37.3 C 79 16 110/66 91 L - Problem List & Annotations (1) Hypoxia SNOMED Code(s): 563533730 Code(s): R09.02 - HYPOXEMIA Status: Acute Current Visit: Yes (2) Pneumonia due to COVID-19 virus SNOMED Code(s): 903661918351098384 Code(s): U07.1 - COVID-19; J12.82 - PNEUMONIA DUE TO CORONAVIRUS DISEASE 2019 Status: Acute Current Visit: Yes - Problem List Review Problem List Initiated/Reviewed/Updated: Yes - My Orders Last 24 Hours: My Active Orders 06/25/21 01:00 RT Post Treatment Assessment [RC] Click to Edit RT Pre-Treatment Assessment [RC] Click to Edit Benzonatate [Tessalon Perles] 100 mg PO Q6H PRN 06/25/21 01:01 Oxygen Therapy [RC] PRN Up ad Tessy [RC] ASDIRECTED VTE/DVT Education [RC] PER UNIT ROUTINE Vital Signs [RC] Q4H Resuscitation Status Routine 06/25/21 01:02 Antiembolic Devices [RC] PER UNIT ROUTINE Sequential Compression Device [OM.PC] Per Unit Routine 06/25/21 03:27 Telemetry Monitoring [Cardiac Monitoring] [RC] Q8H 06/25/21 06:00 Albuterol/Ipratropium [Combivent Respimat] 0 gm INH Q6HRRT 06/25/21 Breakfast Regular Diet [DIET] 06/25/21 09:00 Enoxaparin [Lovenox] 40 mg SUBCUT Q12HR 06/25/21 21:00 Remdesivir 100 mg Sodium Chloride 0.9% [Normal Saline] 100 ml IV Q24H dexAMETHasone 6 mg PO Q24H 06/26/21 05:11 CBC WITH AUTO DIFF [HEME] AM COMPREHENSIVE METABOLIC PN,CMP [CHEM] AM 06/27/21 05:11 CBC WITH AUTO DIFF [HEME] AM COMPREHENSIVE METABOLIC PN,CMP [CHEM] AM 06/28/21 05:11 CBC WITH AUTO DIFF [HEME] AM COMPREHENSIVE METABOLIC PN,CMP [CHEM] AM 06/29/21 05:11 CBC WITH AUTO DIFF [HEME] AM COMPREHENSIVE METABOLIC PN,CMP [CHEM] AM - Plan Plan:: 46 yo male admitted with acute hypoxic respiratory failure from COVID pneumonia. Hypoxia: supplemental oxygen via NC 6 liters COVID: treating with Remdesivir, and dexamethason DVT ppx: lovenox
[2021-06-25] MEDS: REMDESIVIR 100 MG in Sodium Chloride 0.9% 100 ML IV SCH (21:19)
[2021-06-25] MEDS: Dexamethasone 4 MG Tab PO SCH (21:20)
[2021-06-26] MEDS: Albuterol/Ipratropium 4 GM Inhalation Spray INH SCH ×4 (06:15→23:25)
[2021-06-26 06:57] LABS: BLOOD UREA NITROGEN,BUN 8 mg/dL (7.0-18.0); CARBON DIOXIDE,CO2 28.5 mmol/L (21.0-32.0); CHLORIDE,CL 106 mmol/L (98-107); GLUCOSE RANDOM 179 mg/dL (74-106); POTASSIUM,K 4.6 mmol/L (3.5-5.1); SODIUM,NA 143 mmol/L (136-148)
[2021-06-26] MEDS: Benzonatate 100 MG Cap PO PRN (07:34)
[2021-06-26] MEDS: Enoxaparin 40 MG/0.4 ML Syringe SUBCUT SCH ×2 (08:07→20:51)
[2021-06-26] MEDS: guaiFENesin/Dextromethorphan 100-10 MG/5 ML Soln 10 ML Cup PO PRN ×4 (08:07→20:51)
--- NOTE | 2021-06-26 08:56 | PCM.PN ---
- General Info Date of Service: 06/26/21 - Review of Systems Systems Review Comment:: feeling better, had coughing fit earlier, no new complaints - Patient Data Vitals - Most Recent: Last Vital Signs Temp 36.4 C 06/26/21 07:35 Pulse 88 06/26/21 07:35 Resp 20 06/26/21 07:35 BP 130/85 06/26/21 07:35 Pulse Ox 90 L 06/26/21 07:45 Weight - Most Recent: 129.501 kg I&O - Last 24 Hours: Intake & Output 06/25/21 06/26/21 06/26/21 22:59 06:59 14:59 Intake Total 780 900 Output Total 1460 1425 Balance -680 -525 Lab Results Last 24 Hours: Laboratory Results - last 24 hr 06/26/21 06/26/21 Range/Units 05:07 05:07 WBC 8.78 (4.0-11.0) K/uL RBC 4.66 (4.50-5.90) M/uL Hgb 13.9 (13.0-17.0) g/dL Hct 40.8 (38.0-50.0) % MCV 87.6 (80.0-98.0) fL MCH 29.8 (27.0-32.0) pg MCHC 34.1 (31.0-37.0) g/dL RDW Std Deviation 42.3 (28.0-62.0) fl RDW Coeff of Randy 13 (11.0-15.0) % Plt Count 231 (150-400) K/uL MPV 10.40 (7.40-12.00) fL Neut % (Auto) 81.6 H (48.0-80.0) % Lymph % (Auto) 9.8 L (16.0-40.0) % [place] % (Auto) 8.5 (0.0-15.0) % Eos % (Auto) 0.0 (0.0-7.0) % Baso % (Auto) 0.1 (0.0-1.5) % Neut # (Auto) 7.2 H (1.4-5.7) K/uL Lymph # (Auto) 0.9 (0.6-2.4) K/uL [place] # (Auto) 0.8 (0.0-0.8) K/uL Eos # (Auto) 0.0 (0.0-0.7) K/uL Baso # (Auto) 0.0 (0.0-0.1) K/uL Nucleated RBC % 0.0 /100WBC Nucleated RBCs # 0 K/uL Sodium 143 (136-148) mmol/L Potassium 4.6 (3.5-5.1) mmol/L Chloride 106 (98-107) mmol/L Carbon Dioxide 28.5 (21.0-32.0) mmol/L BUN 8 (7.0-18.0) mg/dL Creatinine 0.9 (0.8-1.3) mg/dL Est Cr Clr Drug Dosing 101.33 mL/min Estimated GFR (MDRD) > 60.0 ml/min Glucose 179 H (74-106) mg/dL Calcium 8.1 L (8.5-10.1) mg/dL Total Bilirubin 0.4 (0.2-1.0) mg/dL AST 74 H (15-37) IU/L ALT 71 H (14-63) IU/L Alkaline Phosphatase 57 (46-116) U/L Total Protein 6.9 (6.4-8.2) g/dL Albumin 2.9 L (3.4-5.0) g/dL Globulin 4.0 (2.6-4.0) g/dL Albumin/Globulin Ratio 0.7 L (0.9-1.6) Andres Results Last 24 Hours: Microbiology 06/24/21 20:39 Aerobic Blood Culture - Preliminary Blood - Venous - Lab Draw NO GROWTH AFTER 1 DAY Anaerobic Blood Culture - Preliminary NO GROWTH AFTER 1 DAY 06/24/21 20:09 Aerobic Blood Culture - Preliminary Blood - Venous NO GROWTH AFTER 1 DAY Anaerobic Blood Culture - Preliminary NO GROWTH AFTER 1 DAY Med Orders - Current: Current Medications Albuterol/Ipratropium (Albuterol/Ipratropium 4 Gm Inhalation [place]) 0 gm INH Q6HRRT [facility]OOKS Last Admin: 06/26/21 06:15 Dose: 1 puff Documented by: Dexamethasone (Dexamethasone 4 Mg Tab) 6 mg PO Q24H [facility]OOKS Last Admin: 06/25/21 21:20 Dose: 6 mg Documented by: Enoxaparin Sodium (Enoxaparin 40 Mg/0.4 Ml Syringe) 40 mg SUBCUT Q12HR [facility] Last Admin: 06/26/21 08:07 Dose: 40 mg Documented by: Guaifenesin/Dextromethorphan (Guaifenesin/Dextromethorphan 100-10 Mg/5 Ml Soln 10 Ml Cup) 10 ml PO Q4H PRN PRN Reason: Cough Last Admin: 06/26/21 08:07 Dose: 10 ml Documented by: Remdesivir 100 mg/ Sodium (Chloride) 100 mls @ 100 mls/hr IV Q24H [facility]OOKS Stop: 06/28/21 21:59 Last Admin: 06/25/21 21:19 Dose: 100 mls/hr Documented by: Discontinued Medications Acetaminophen (Acetaminophen 325 Mg Tab) 650 mg PO NOW ONE Stop: 06/24/21 22:14 Last Admin: 06/24/21 22:23 Dose: 650 mg Documented by: Benzonatate (Benzonatate 100 Mg Cap) 100 mg PO Q6H PRN PRN Reason: Cough Last Admin: 06/26/21 07:34 Dose: 100 mg Documented by: Dexamethasone (Dexamethasone 10 Mg/Ml Sdv) 6 mg IVPUSH ONETIME ONE Stop: 06/24/21 21:24 Last Admin: 06/24/21 22:10 Dose: 6 mg Documented by: Sodium Chloride (Normal Saline) 1,000 mls @ 125 mls/hr IV STAT ONE Stop: 06/25/21 04:08 Last Admin: 06/24/21 20:17 Dose: 125 mls/hr Documented by: Remdesivir 200 mg/ Sodium (Chloride) 250 mls @ 250 mls/hr IV ONETIME ONE Stop: 06/24/21 21:24 Last Admin: 06/24/21 23:08 Dose: 250 mls/hr Documented by: Promethazine HCl/Codeine (Codeine/Promethazine 10-6.25 Mg/5 Ml Syrup 5 Ml Ud Syringe) 5 ml PO NOW STA Stop: 06/24/21 20:10 Last Admin: 06/24/21 20:18 Dose: 5 ml Documented by: - Exam General: Alert, Oriented Neck: Supple Lungs: Normal Respiratory Effort, Rhonchi Cardiovascular: Regular Rate, Regular Rhythm GI/Abdominal Exam: Normal Bowel Sounds, Soft, Non-Tender Extremities: Non-Tender, No Pedal Edema Skin: Warm, Dry, Intact Neurological: No New Focal Deficit - Patient Data Lab Results Last 24 hrs: Laboratory Results - last 24 hr 06/26/21 06/26/21 Range/Units 05:07 05:07 WBC 8.78 (4.0-11.0) K/uL RBC 4.66 (4.50-5.90) M/uL Hgb 13.9 (13.0-17.0) g/dL Hct 40.8 (38.0-50.0) % MCV 87.6 (80.0-98.0) fL MCH 29.8 (27.0-32.0) pg MCHC 34.1 (31.0-37.0) g/dL RDW Std Deviation 42.3 (28.0-62.0) fl RDW Coeff of Randy 13 (11.0-15.0) % Plt Count 231 (150-400) K/uL MPV 10.40 (7.40-12.00) fL Neut % (Auto) 81.6 H (48.0-80.0) % Lymph % (Auto) 9.8 L (16.0-40.0) % [place] % (Auto) 8.5 (0.0-15.0) % Eos % (Auto) 0.0 (0.0-7.0) % Baso % (Auto) 0.1 (0.0-1.5) % Neut # (Auto) 7.2 H (1.4-5.7) K/uL Lymph # (Auto) 0.9 (0.6-2.4) K/uL [place] # (Auto) 0.8 (0.0-0.8) K/uL Eos # (Auto) 0.0 (0.0-0.7) K/uL Baso # (Auto) 0.0 (0.0-0.1) K/uL Nucleated RBC % 0.0 /100WBC Nucleated RBCs # 0 K/uL Sodium 143 (136-148) mmol/L Potassium 4.6 (3.5-5.1) mmol/L Chloride 106 (98-107) mmol/L Carbon Dioxide 28.5 (21.0-32.0) mmol/L BUN 8 (7.0-18.0) mg/dL Creatinine 0.9 (0.8-1.3) mg/dL Est Cr Clr Drug Dosing 101.33 mL/min Estimated GFR (MDRD) > 60.0 ml/min Glucose 179 H (74-106) mg/dL Calcium 8.1 L (8.5-10.1) mg/dL Total Bilirubin 0.4 (0.2-1.0) mg/dL AST 74 H (15-37) IU/L ALT 71 H (14-63) IU/L Alkaline Phosphatase 57 (46-116) U/L Total Protein 6.9 (6.4-8.2) g/dL Albumin 2.9 L (3.4-5.0) g/dL Globulin 4.0 (2.6-4.0) g/dL Albumin/Globulin Ratio 0.7 L (0.9-1.6) Result Diagrams: 06/26/21 05:07 06/26/21 05:07 Andres Results Last 24 hrs: Microbiology 06/24/21 20:39 Aerobic Blood Culture - Preliminary Blood - Venous - Lab Draw NO GROWTH AFTER 1 DAY Anaerobic Blood Culture - Preliminary NO GROWTH AFTER 1 DAY 06/24/21 20:09 Aerobic Blood Culture - Preliminary Blood - Venous NO GROWTH AFTER 1 DAY Anaerobic Blood Culture - Preliminary NO GROWTH AFTER 1 DAY Sepsis Event Note - Evaluation Sepsis Screening Result: No Definite Risk - Focused Exam Vital Signs: Vital Signs Temp Pulse Resp BP Pulse Ox Pulse Ox 06/26/21 07:45 90 L 06/26/21 07:35 36.4 C 88 20 130/85 87 L 06/26/21 03:00 36.6 C 72 18 129/82 90 L 06/26/21 00:00 36.7 C 98 20 114/84 90 L - Problem List & Annotations (1) Hypoxia SNOMED Code(s): 077719251 Code(s): R09.02 - HYPOXEMIA Status: Acute Current Visit: Yes (2) Pneumonia due to COVID-19 virus SNOMED Code(s): 585979176465798121 Code(s): U07.1 - COVID-19; J12.82 - PNEUMONIA DUE TO CORONAVIRUS DISEASE 2019 Status: Acute Current Visit: Yes - Problem List Review Problem List Initiated/Reviewed/Updated: Yes - My Orders Last 24 Hours: My Active Orders 06/25/21 09:00 Enoxaparin [Lovenox] 40 mg SUBCUT Q12HR 06/25/21 21:00 Remdesivir 100 mg Sodium Chloride 0.9% [Normal Saline] 100 ml IV Q24H dexAMETHasone 6 mg PO Q24H 06/27/21 05:11 CBC WITH AUTO DIFF [HEME] AM COMPREHENSIVE METABOLIC PN,CMP [CHEM] AM 06/28/21 05:11 CBC WITH AUTO DIFF [HEME] AM COMPREHENSIVE METABOLIC PN,CMP [CHEM] AM 06/29/21 05:11 CBC WITH AUTO DIFF [HEME] AM COMPREHENSIVE METABOLIC PN,CMP [CHEM] AM - Plan Plan:: 46 yo male admitted with acute hypoxic respiratory failure from COVID pneumonia. Hypoxia: supplemental oxygen via NC 7 liters COVID: treating with Remdesivir, and dexamethasone DVT ppx: lovenox
[2021-06-26] MEDS: REMDESIVIR 100 MG in Sodium Chloride 0.9% 100 ML IV SCH (20:50)
[2021-06-26] MEDS: Dexamethasone 4 MG Tab PO SCH (20:51)
[2021-06-27 06:37] LABS: BLOOD UREA NITROGEN,BUN 11 mg/dL (7.0-18.0); CARBON DIOXIDE,CO2 27.3 mmol/L (21.0-32.0); CHLORIDE,CL 104 mmol/L (98-107); GLUCOSE RANDOM 183 mg/dL (74-106); POTASSIUM,K 4.5 mmol/L (3.5-5.1); SODIUM,NA 141 mmol/L (136-148)
[2021-06-27] MEDS: Albuterol/Ipratropium 4 GM Inhalation Spray INH SCH ×4 (06:51→23:28)
[2021-06-27] MEDS: guaiFENesin/Dextromethorphan 100-10 MG/5 ML Soln 10 ML Cup PO PRN ×3 (06:58→23:29)
[2021-06-27] MEDS: Enoxaparin 40 MG/0.4 ML Syringe SUBCUT SCH ×2 (09:50→20:11)
--- NOTE | 2021-06-27 17:24 | PCM.PN ---
<Shaan Bean - Last Filed: 06/27/21 17:24> - General Info Date of Service: 06/27/21 Subjective Update: Patient still concerns overnight. Denies chest pain, fever, nausea, vomiting. Patient states mild shortness of breath while walking to the bathroom. Patient states biggest concern is coughing, states coughing spells cause shortness of breath. - Review of Systems General: Denies: Fever, Chills Pulmonary: Reports: Cough. Denies: Shortness of Breath Cardiovascular: Reports: Dyspnea on Exertion (mild). Denies: Chest Pain, Edema Gastrointestinal: Denies: Abdominal Pain, Decreased Appetite, Diarrhea, Nausea, Vomiting Neurological: Denies: Confusion, Dizziness - Patient Data Vitals - Most Recent: Last Vital Signs Temp 98.4 F 06/27/21 16:00 Pulse 77 06/27/21 16:00 Resp 20 06/27/21 16:00 BP 134/92 H 06/27/21 16:00 Pulse Ox 97 06/27/21 16:00 Weight - Most Recent: 129.501 kg I&O - Last 24 Hours: Intake & Output 06/27/21 06/27/21 06/27/21 06:59 14:59 22:59 Intake Total 1000 Output Total 1730 Balance -730 Lab Results Last 24 Hours: Laboratory Results - last 24 hr 06/27/21 06/27/21 Range/Units 05:30 05:30 WBC 10.11 (4.0-11.0) K/uL RBC 4.67 (4.50-5.90) M/uL Hgb 14.1 (13.0-17.0) g/dL Hct 41.4 (38.0-50.0) % MCV 88.7 (80.0-98.0) fL MCH 30.2 (27.0-32.0) pg MCHC 34.1 (31.0-37.0) g/dL RDW Std Deviation 41.3 (28.0-62.0) fl RDW Coeff of Randy 13 (11.0-15.0) % Plt Count 280 (150-400) K/uL MPV 10.10 (7.40-12.00) fL Add Manual Diff YES Neutrophils % (Manual) 79 (48.0-80.0) % Band Neutrophils % 10 % Lymphocytes % (Manual) 7 L (16.0-40.0) % Monocytes % (Manual) 4 (0.0-15.0) % Absolute Seg Neuts 8.0 H (1.4-5.7) Band Neutrophils # 1.0 Lymphocytes # (Manual) 0.7 (0.6-2.4) Monocytes # (Manual) 0.4 (0.0-0.8) Sodium 141 (136-148) mmol/L Potassium 4.5 (3.5-5.1) mmol/L Chloride 104 (98-107) mmol/L Carbon Dioxide 27.3 (21.0-32.0) mmol/L BUN 11 (7.0-18.0) mg/dL Creatinine 0.9 (0.8-1.3) mg/dL Est Cr Clr Drug Dosing 101.33 mL/min Estimated GFR (MDRD) > 60.0 ml/min Glucose 183 H (74-106) mg/dL Calcium 7.6 L (8.5-10.1) mg/dL Total Bilirubin 0.6 (0.2-1.0) mg/dL AST 73 H (15-37) IU/L ALT 98 H (14-63) IU/L Alkaline Phosphatase 56 (46-116) U/L Total Protein 6.5 (6.4-8.2) g/dL Albumin 2.8 L (3.4-5.0) g/dL Globulin 3.7 (2.6-4.0) g/dL Albumin/Globulin Ratio 0.8 L (0.9-1.6) Andres Results Last 24 Hours: Microbiology 06/24/21 20:39 Aerobic Blood Culture - Preliminary Blood - Venous - Lab Draw NO GROWTH AFTER 2 DAYS Anaerobic Blood Culture - Preliminary NO GROWTH AFTER 2 DAYS 06/24/21 20:09 Aerobic Blood Culture - Preliminary Blood - Venous NO GROWTH AFTER 2 DAYS Anaerobic Blood Culture - Preliminary NO GROWTH AFTER 2 DAYS Med Orders - Current: Current Medications Albuterol/Ipratropium (Albuterol/Ipratropium 4 Gm Inhalation [place]) 0 gm INH Q6HRRT [facility] Last Admin: 06/27/21 11:49 Dose: 1 puff Documented by: Dexamethasone (Dexamethasone 4 Mg Tab) 6 mg PO Q24H [facility] Last Admin: 06/26/21 20:51 Dose: 6 mg Documented by: Enoxaparin Sodium (Enoxaparin 40 Mg/0.4 Ml Syringe) 40 mg SUBCUT Q12HR [facility] Last Admin: 06/27/21 09:50 Dose: 40 mg Documented by: Guaifenesin/Dextromethorphan (Guaifenesin/Dextromethorphan 100-10 Mg/5 Ml Soln 10 Ml Cup) 10 ml PO Q4H PRN PRN Reason: Cough Last Admin: 06/27/21 12:03 Dose: 10 ml Documented by: Remdesivir 100 mg/ Sodium (Chloride) 100 mls @ 100 mls/hr IV Q24H [facility] Stop: 06/28/21 21:59 Last Admin: 06/26/21 20:50 Dose: 100 mls/hr Documented by: Discontinued Medications Acetaminophen (Acetaminophen 325 Mg Tab) 650 mg PO NOW ONE Stop: 06/24/21 22:14 Last Admin: 06/24/21 22:23 Dose: 650 mg Documented by: Benzonatate (Benzonatate 100 Mg Cap) 100 mg PO Q6H PRN PRN Reason: Cough Last Admin: 06/26/21 07:34 Dose: 100 mg Documented by: Dexamethasone (Dexamethasone 10 Mg/Ml Sdv) 6 mg IVPUSH ONETIME ONE Stop: 06/24/21 21:24 Last Admin: 06/24/21 22:10 Dose: 6 mg Documented by: Sodium Chloride (Normal Saline) 1,000 mls @ 125 mls/hr IV STAT ONE Stop: 06/25/21 04:08 Last Admin: 06/24/21 20:17 Dose: 125 mls/hr Documented by: Remdesivir 200 mg/ Sodium (Chloride) 250 mls @ 250 mls/hr IV ONETIME ONE Stop: 06/24/21 21:24 Last Admin: 06/24/21 23:08 Dose: 250 mls/hr Documented by: Promethazine HCl/Codeine (Codeine/Promethazine 10-6.25 Mg/5 Ml Syrup 5 Ml Ud Syringe) 5 ml PO NOW STA Stop: 06/24/21 20:10 Last Admin: 06/24/21 20:18 Dose: 5 ml Documented by: - Exam Quality Assessment: Supplemental Oxygen General: Alert, Oriented Lungs: Clear to Auscultation, Normal Respiratory Effort Cardiovascular: Regular Rate, Regular Rhythm GI/Abdominal Exam: Soft, Non-Tender Extremities: No Pedal Edema - Patient Data Lab Results Last 24 hrs: Laboratory Results - last 24 hr 06/27/21 06/27/21 Range/Units 05:30 05:30 WBC 10.11 (4.0-11.0) K/uL RBC 4.67 (4.50-5.90) M/uL Hgb 14.1 (13.0-17.0) g/dL Hct 41.4 (38.0-50.0) % MCV 88.7 (80.0-98.0) fL MCH 30.2 (27.0-32.0) pg MCHC 34.1 (31.0-37.0) g/dL RDW Std Deviation 41.3 (28.0-62.0) fl RDW Coeff of Randy 13 (11.0-15.0) % Plt Count 280 (150-400) K/uL MPV 10.10 (7.40-12.00) fL Add Manual Diff YES Neutrophils % (Manual) 79 (48.0-80.0) % Band Neutrophils % 10 % Lymphocytes % (Manual) 7 L (16.0-40.0) % Monocytes % (Manual) 4 (0.0-15.0) % Absolute Seg Neuts 8.0 H (1.4-5.7) Band Neutrophils # 1.0 Lymphocytes # (Manual) 0.7 (0.6-2.4) Monocytes # (Manual) 0.4 (0.0-0.8) Sodium 141 (136-148) mmol/L Potassium 4.5 (3.5-5.1) mmol/L Chloride 104 (98-107) mmol/L Carbon Dioxide 27.3 (21.0-32.0) mmol/L BUN 11 (7.0-18.0) mg/dL Creatinine 0.9 (0.8-1.3) mg/dL Est Cr Clr Drug Dosing 101.33 mL/min Estimated GFR (MDRD) > 60.0 ml/min Glucose 183 H (74-106) mg/dL Calcium 7.6 L (8.5-10.1) mg/dL Total Bilirubin 0.6 (0.2-1.0) mg/dL AST 73 H (15-37) IU/L ALT 98 H (14-63) IU/L Alkaline Phosphatase 56 (46-116) U/L Total Protein 6.5 (6.4-8.2) g/dL Albumin 2.8 L (3.4-5.0) g/dL Globulin 3.7 (2.6-4.0) g/dL Albumin/Globulin Ratio 0.8 L (0.9-1.6) Result Diagrams: 06/27/21 05:30 06/27/21 05:30 Andres Results Last 24 hrs: Microbiology 06/24/21 20:39 Aerobic Blood Culture - Preliminary Blood - Venous - Lab Draw NO GROWTH AFTER 2 DAYS Anaerobic Blood Culture - Preliminary NO GROWTH AFTER 2 DAYS 06/24/21 20:09 Aerobic Blood Culture - Preliminary Blood - Venous NO GROWTH AFTER 2 DAYS Anaerobic Blood Culture - Preliminary NO GROWTH AFTER 2 DAYS Sepsis Event Note - Evaluation Sepsis Screening Result: No Definite Risk - Focused Exam Vital Signs: Vital Signs Temp Pulse Resp BP Pulse Ox 06/27/21 16:00 98.4 F 77 20 134/92 H 97 06/27/21 14:41 97.3 F 81 18 122/78 94 L 06/27/21 09:51 97.3 F 93 18 127/85 96 06/27/21 08:28 98.1 F 79 16 121/80 92 L - Problem List & Annotations (1) Hypoxia SNOMED Code(s): 354267923 Code(s): R09.02 - HYPOXEMIA Status: Acute (2) Pneumonia due to COVID-19 virus SNOMED Code(s): 447674105690434899 Code(s): U07.1 - COVID-19; J12.82 - PNEUMONIA DUE TO CORONAVIRUS DISEASE 2019 Status: Acute - Problem List Review Problem List Initiated/Reviewed/Updated: Yes - Plan Plan:: Acute hypoxic respiratory failure from COVID pneumonia. Patient currently on 3 L nasal cannula oxygen saturation 93%. Will complete walking trial tomorrow and discuss discharge. Continue remdesivir, dexamethasone, Combivent. Lovenox DVT prophylaxis <Xiomara Baker - Last Filed: 06/29/21 15:28> - Patient Data Vitals - Most Recent: Last Vital Signs Temp 36.2 C 06/28/21 11:13 Pulse 77 06/28/21 11:13 Resp 17 06/28/21 11:13 BP 125/74 06/28/21 11:13 Pulse Ox 92 L 06/28/21 11:13 Andres Results Last 24 Hours: Microbiology 06/24/21 20:39 Aerobic Blood Culture - Preliminary Blood - Venous - Lab Draw NO GROWTH AFTER 4 DAYS Anaerobic Blood Culture - Preliminary NO GROWTH AFTER 4 DAYS 06/24/21 20:09 Aerobic Blood Culture - Preliminary Blood - Venous NO GROWTH AFTER 4 DAYS Anaerobic Blood Culture - Preliminary NO GROWTH AFTER 4 DAYS Med Orders - Current: Current Medications Discontinued Medications Acetaminophen (Acetaminophen 325 Mg Tab) 650 mg PO NOW ONE Stop: 06/24/21 22:14 Last Admin: 06/24/21 22:23 Dose: 650 mg Documented by: Albuterol/Ipratropium (Albuterol/Ipratropium 4 Gm Inhalation [place]) 0 gm INH Q6HRRT [facility] Last Admin: 06/28/21 05:17 Dose: 1 puff Documented by: Benzonatate (Benzonatate 100 Mg Cap) 100 mg PO Q6H PRN PRN Reason: Cough Last Admin: 06/26/21 07:34 Dose: 100 mg Documented by: Dexamethasone (Dexamethasone 10 Mg/Ml Sdv) 6 mg IVPUSH ONETIME ONE Stop: 06/24/21 21:24 Last Admin: 06/24/21 22:10 Dose: 6 mg Documented by: Dexamethasone (Dexamethasone 4 Mg Tab) 6 mg PO Q24H [facility] Last Admin: 06/27/21 20:13 Dose: 6 mg Documented by: Enoxaparin Sodium (Enoxaparin 40 Mg/0.4 Ml Syringe) 40 mg SUBCUT Q12HR [facility] Last Admin: 06/28/21 09:00 Dose: 40 mg Documented by: Guaifenesin/Dextromethorphan (Guaifenesin/Dextromethorphan 100-10 Mg/5 Ml Soln 10 Ml Cup) 10 ml PO Q4H PRN PRN Reason: Cough Last Admin: 06/27/21 23:29 Dose: 10 ml Documented by: Sodium Chloride (Normal Saline) 1,000 mls @ 125 mls/hr IV STAT ONE Stop: 06/25/21 04:08 Last Admin: 06/24/21 20:17 Dose: 125 mls/hr Documented by: Remdesivir 200 mg/ Sodium (Chloride) 250 mls @ 250 mls/hr IV ONETIME ONE Stop: 06/24/21 21:24 Last Admin: 06/24/21 23:08 Dose: 250 mls/hr Documented by: Remdesivir 100 mg/ Sodium (Chloride) 100 mls @ 100 mls/hr IV Q24H [facility] Stop: 06/28/21 21:59 Last Admin: 06/27/21 20:12 Dose: 100 mls/hr Documented by: Promethazine HCl/Codeine (Codeine/Promethazine 10-6.25 Mg/5 Ml Syrup 5 Ml Ud Syringe) 5 ml PO NOW STA Stop: 06/24/21 20:10 Last Admin: 06/24/21 20:18 Dose: 5 ml Documented by: - Patient Data Result Diagrams: 06/28/21 05:58 06/28/21 05:58 Andres Results Last 24 hrs: Microbiology 06/24/21 20:39 Aerobic Blood Culture - Preliminary Blood - Venous - Lab Draw NO GROWTH AFTER 4 DAYS Anaerobic Blood Culture - Preliminary NO GROWTH AFTER 4 DAYS 06/24/21 20:09 Aerobic Blood Culture - Preliminary Blood - Venous NO GROWTH AFTER 4 DAYS Anaerobic Blood Culture - Preliminary NO GROWTH AFTER 4 DAYS - Plan Plan:: I have seen and evaluated the patient and agree with the residents note unless specified in my note
[2021-06-27] MEDS: REMDESIVIR 100 MG in Sodium Chloride 0.9% 100 ML IV SCH (20:12)
[2021-06-27] MEDS: Dexamethasone 4 MG Tab PO SCH (20:13)
[2021-06-28] MEDS: Albuterol/Ipratropium 4 GM Inhalation Spray INH SCH (05:17)
[2021-06-28 07:34] LABS: BLOOD UREA NITROGEN,BUN 13 mg/dL (7.0-18.0); CARBON DIOXIDE,CO2 27.9 mmol/L (21.0-32.0); CHLORIDE,CL 104 mmol/L (98-107); GLUCOSE RANDOM 169 mg/dL (74-106); POTASSIUM,K 4.7 mmol/L (3.5-5.1); SODIUM,NA 141 mmol/L (136-148)
[2021-06-28] MEDS: Enoxaparin 40 MG/0.4 ML Syringe SUBCUT SCH (09:00)
--- NOTE | 2021-06-28 14:26 | PCM.DCSUM1 ---
<RooseveltShaan rangel - Last Filed: 06/28/21 22:33> Discharge Summary - Hospital Course Free Text/Narrative:: Patient is a 46-year-old male who presents to the emergency room with complaints of shortness of breath, chest pain and cough. He was diagnosed with COVID-19 on 06/17/2021 and states his symptoms are progressively getting worse. Per documentation patient was satting in the mid 80s on room air at admission. Patient's chest x-ray revealed bilateral opacities representing Covid pneumonia. Patient admitted to the medical floor on 06-25-21 for Covid pneumonia. Patient's hospital course included remdesivir, dexamethasone, Combivent, Lovenox. Throughout hospital course patient's maximum oxygen requirement was 6 L, at the time of patient's discharge he was on room air. Patient was discharged on 06-28-21, in stable condition home without the necessity of home oxygen. Given prescriptions for dexamethasone, albuterol inhaler, Combivent, Robitussin cough syrup - Discharge Data Discharge Date: 06/28/21 Discharge Disposition: Home, Self-Care 01 Condition: Good - Referral to Home Health Primary Care Physician: PCP None - Discharge Diagnosis/Problem(s) (1) Hypoxia SNOMED Code(s): 973649594 ICD Code: R09.02 - HYPOXEMIA Status: Acute (2) Pneumonia due to COVID-19 virus SNOMED Code(s): 916295105768499156 ICD Code: U07.1 - COVID-19; J12.82 - PNEUMONIA DUE TO CORONAVIRUS DISEASE 2019 Status: Acute - Patient Instructions Diet: Usual Diet as Tolerated Activity: As Tolerated Showering/Bathing: January Shower Notify Provider of: Fever, Nausea and/or Vomiting - Discharge Plan Prescriptions/Med Rec: Albuterol Sulfate [Albuterol Sulfate Hfa] 6.7 gm IH Q4HR PRN #1 hfa.aer.[email or web address] PRN Reason: Shortness Of Breath dexAMETHasone [Dexamethasone] 6 mg PO Q24H 7 Days #11 tablet Dextromethorphan/guaiFENesin [Robitussin DM] 10 ml PO Q6H PRN #120 ml PRN Reason: Cough Home Medications: Home Meds Albuterol Sulfate [Albuterol Sulfate Hfa] 6.7 gm IH Q4HR PRN #1 hfa.aer.ad 10/01/21 [Rx] Dextromethorphan/guaiFENesin [Robitussin DM] 10 ml PO Q6H PRN #120 ml 06/28/21 [Rx] dexAMETHasone [Dexamethasone] 6 mg PO Q24H 7 Days #11 tablet 06/28/21 [Rx] Patient Handouts: Dextromethorphan; Guaifenesin oral solution, Albuterol inhalation aerosol, Dexamethasone tablets Forms: ED Department Discharge Referrals: Ana Mckeon MD [Resident] - 07/08/21 9:30 am - Discharge Summary/Plan Comment DC Time >30 min.: Yes Total # of Minutes for Discharge Time: 31 - Patient Data Vitals - Most Recent: Last Vital Signs Temp 97.1 F 06/28/21 11:13 Pulse 77 06/28/21 11:13 Resp 17 06/28/21 11:13 BP 125/74 06/28/21 11:13 Pulse Ox 92 L 06/28/21 11:13 Weight - Most Recent: 129.501 kg I&O - Last 24 hours: Intake & Output 06/27/21 06/28/21 06/28/21 22:59 06:59 14:59 Intake Total 1150 750 Output Total 900 1150 Balance 250 -400 Lab Results - Last 24 hrs: Laboratory Results - last 24 hr 06/28/21 06/28/21 Range/Units 05:58 05:58 WBC 10.07 (4.0-11.0) K/uL RBC 4.75 (4.50-5.90) M/uL Hgb 14.2 (13.0-17.0) g/dL Hct 41.5 (38.0-50.0) % MCV 87.4 (80.0-98.0) fL MCH 29.9 (27.0-32.0) pg MCHC 34.2 (31.0-37.0) g/dL RDW Std Deviation 41.8 (28.0-62.0) fl RDW Coeff of Randy 13 (11.0-15.0) % Plt Count 303 (150-400) K/uL MPV 10.20 (7.40-12.00) fL Add Manual Diff YES Neutrophils % (Manual) 70 (48.0-80.0) % Band Neutrophils % 2 % Lymphocytes % (Manual) 17 (16.0-40.0) % Monocytes % (Manual) 10 (0.0-15.0) % Myelocytes % 1 % Nucleated RBC % 0.0 /100WBC Absolute Seg Neuts 7.0 H (1.4-5.7) Band Neutrophils # 0.2 Lymphocytes # (Manual) 1.7 (0.6-2.4) Monocytes # (Manual) 1.0 H (0.0-0.8) Absolute Myelocytes 0.1 Nucleated RBCs # 0 K/uL Sodium 141 (136-148) mmol/L Potassium 4.7 (3.5-5.1) mmol/L Chloride 104 (98-107) mmol/L Carbon Dioxide 27.9 (21.0-32.0) mmol/L BUN 13 (7.0-18.0) mg/dL Creatinine 0.9 (0.8-1.3) mg/dL Est Cr Clr Drug Dosing 101.33 mL/min Estimated GFR (MDRD) > 60.0 ml/min Glucose 169 H (74-106) mg/dL Calcium 8.3 L (8.5-10.1) mg/dL Total Bilirubin 0.6 (0.2-1.0) mg/dL AST 130 H (15-37) IU/L ALT 284 H (14-63) IU/L Alkaline Phosphatase 53 (46-116) U/L Total Protein 6.5 (6.4-8.2) g/dL Albumin 2.8 L (3.4-5.0) g/dL Globulin 3.7 (2.6-4.0) g/dL Albumin/Globulin Ratio 0.8 L (0.9-1.6) CESILIA Results - Last 24 hrs: Microbiology 06/24/21 20:39 Aerobic Blood Culture - Preliminary Blood - Venous - Lab Draw NO GROWTH AFTER 3 DAYS Anaerobic Blood Culture - Preliminary NO GROWTH AFTER 3 DAYS 06/24/21 20:09 Aerobic Blood Culture - Preliminary Blood - Venous NO GROWTH AFTER 3 DAYS Anaerobic Blood Culture - Preliminary NO GROWTH AFTER 3 DAYS Med Orders - Current: Current Medications Albuterol/Ipratropium (Albuterol/Ipratropium 4 Gm Inhalation [place]) 0 gm INH Q6HRRT [facility] Last Admin: 06/28/21 05:17 Dose: 1 puff Documented by: Dexamethasone (Dexamethasone 4 Mg Tab) 6 mg PO Q24H [facility] Last Admin: 06/27/21 20:13 Dose: 6 mg Documented by: Enoxaparin Sodium (Enoxaparin 40 Mg/0.4 Ml Syringe) 40 mg SUBCUT Q12HR [facility] Last Admin: 06/28/21 09:00 Dose: 40 mg Documented by: Guaifenesin/Dextromethorphan (Guaifenesin/Dextromethorphan 100-10 Mg/5 Ml Soln 10 Ml Cup) 10 ml PO Q4H PRN PRN Reason: Cough Last Admin: 06/27/21 23:29 Dose: 10 ml Documented by: Remdesivir 100 mg/ Sodium (Chloride) 100 mls @ 100 mls/hr IV Q24H [facility] Stop: 06/28/21 21:59 Last Admin: 06/27/21 20:12 Dose: 100 mls/hr Documented by: Discontinued Medications Acetaminophen (Acetaminophen 325 Mg Tab) 650 mg PO NOW ONE Stop: 06/24/21 22:14 Last Admin: 06/24/21 22:23 Dose: 650 mg Documented by: Benzonatate (Benzonatate 100 Mg Cap) 100 mg PO Q6H PRN PRN Reason: Cough Last Admin: 06/26/21 07:34 Dose: 100 mg Documented by: Dexamethasone (Dexamethasone 10 Mg/Ml Sdv) 6 mg IVPUSH ONETIME ONE Stop: 06/24/21 21:24 Last Admin: 06/24/21 22:10 Dose: 6 mg Documented by: Sodium Chloride (Normal Saline) 1,000 mls @ 125 mls/hr IV STAT ONE Stop: 06/25/21 04:08 Last Admin: 06/24/21 20:17 Dose: 125 mls/hr Documented by: Remdesivir 200 mg/ Sodium (Chloride) 250 mls @ 250 mls/hr IV ONETIME ONE Stop: 06/24/21 21:24 Last Admin: 06/24/21 23:08 Dose: 250 mls/hr Documented by: Promethazine HCl/Codeine (Codeine/Promethazine 10-6.25 Mg/5 Ml Syrup 5 Ml Ud Syringe) 5 ml PO NOW STA Stop: 06/24/21 20:10 Last Admin: 06/24/21 20:18 Dose: 5 ml Documented by: <Xiomara Baker - Last Filed: 10/02/21 15:32> Discharge Summary - Hospital Course Free Text/Narrative:: I have seen and evaluated the patient and agree with the residents note unless specified in my note - Referral to Home Health Primary Care Physician: PCP None - Patient Data Vitals - Most Recent: Last Vital Signs Temp 36.2 C 06/28/21 11:13 Pulse 77 06/28/21 11:13 Resp 17 06/28/21 11:13 BP 125/74 06/28/21 11:13 Pulse Ox 92 L 06/28/21 11:13 CESILIA Results - Last 24 hrs: Microbiology 06/24/21 20:39 Aerobic Blood Culture - Preliminary Blood - Venous - Lab Draw NO GROWTH AFTER 4 DAYS Anaerobic Blood Culture - Preliminary NO GROWTH AFTER 4 DAYS 06/24/21 20:09 Aerobic Blood Culture - Preliminary Blood - Venous NO GROWTH AFTER 4 DAYS Anaerobic Blood Culture - Preliminary NO GROWTH AFTER 4 DAYS Med Orders - Current: Current Medications Discontinued Medications Acetaminophen (Acetaminophen 325 Mg Tab) 650 mg PO NOW ONE Stop: 06/24/21 22:14 Last Admin: 06/24/21 22:23 Dose: 650 mg Documented by: Albuterol/Ipratropium (Albuterol/Ipratropium 4 Gm Inhalation [place]) 0 gm INH Q6HRRT [facility] Last Admin: 06/28/21 05:17 Dose: 1 puff Documented by: Benzonatate (Benzonatate 100 Mg Cap) 100 mg PO Q6H PRN PRN Reason: Cough Last Admin: 06/26/21 07:34 Dose: 100 mg Documented by: Dexamethasone (Dexamethasone 10 Mg/Ml Sdv) 6 mg IVPUSH ONETIME ONE Stop: 06/24/21 21:24 Last Admin: 06/24/21 22:10 Dose: 6 mg Documented by: Dexamethasone (Dexamethasone 4 Mg Tab) 6 mg PO Q24H [facility] Last Admin: 06/27/21 20:13 Dose: 6 mg Documented by: Enoxaparin Sodium (Enoxaparin 40 Mg/0.4 Ml Syringe) 40 mg SUBCUT Q12HR [facility] Last Admin: 06/28/21 09:00 Dose: 40 mg Documented by: Guaifenesin/Dextromethorphan (Guaifenesin/Dextromethorphan 100-10 Mg/5 Ml Soln 10 Ml Cup) 10 ml PO Q4H PRN PRN Reason: Cough Last Admin: 06/27/21 23:29 Dose: 10 ml Documented by: Sodium Chloride (Normal Saline) 1,000 mls @ 125 mls/hr IV STAT ONE Stop: 06/25/21 04:08 Last Admin: 06/24/21 20:17 Dose: 125 mls/hr Documented by: Remdesivir 200 mg/ Sodium (Chloride) 250 mls @ 250 mls/hr IV ONETIME ONE Stop: 06/24/21 21:24 Last Admin: 06/24/21 23:08 Dose: 250 mls/hr Documented by: Remdesivir 100 mg/ Sodium (Chloride) 100 mls @ 100 mls/hr IV Q24H [facility] Stop: 06/28/21 21:59 Last Admin: 06/27/21 20:12 Dose: 100 mls/hr Documented by: Promethazine HCl/Codeine (Codeine/Promethazine 10-6.25 Mg/5 Ml Syrup 5 Ml Ud Syringe) 5 ml PO NOW STA Stop: 06/24/21 20:10 Last Admin: 06/24/21 20:18 Dose: 5 ml Documented by:
== END 2021-06-28 14:39 | disposition home or self-care (01) | DRG 137 ==
LOC: MW.ED 19:39 → MW.MS 21:24
PROVIDERS: ADMIT Internal Medicine; ATTEND Internal Medicine
PROC: XW033E5 Introduction of Remdesivir Anti-infective into Peripheral Vein, Percutaneous Approach, New Technology Group 5 (ICD-10-PCS; principal; 2021-06-24)
PROC: 3E0333Z Introduction of Anti-inflammatory into Peripheral Vein, Percutaneous Approach (ICD-10-PCS; 2021-06-24)
PROC: 3E0DX3Z Introduction of Anti-inflammatory into Mouth and Pharynx, External Approach (ICD-10-PCS; 2021-06-25)
DX: U07.1 COVID-19 (principal); J12.82 Pneumonia due to coronavirus disease 2019; J96.01 Acute respiratory failure with hypoxia
CPT/HCPCS: 36415; 71045; 71045-26; 80053; 82248; 83605; 84484; 85025; 87040; 94640; 94664; 99285-25; A9270-GY; J1100; J1650; J7030; J7050; J8540